=== PATIENT | male | born 1980 | race Caucasian/White ===

== ENCOUNTER 2019-09-12 16:45 | Outpatient (CLI) | payer OTHER ==
--- NOTE | 2019-09-13 09:23 | MRI Report ---
Reason: LOW BACK PAIN Procedure Date: 09/12/2019 Accession Number: [id number] / [id number] Procedure: MRI - Lumbar Spine W/O CPT Code: Final Report FULL RESULT: EXAM: MRI LUMBAR SPINE WITHOUT CONTRAST EXAM DATE: 09/12/2019 05:52 PM. CLINICAL HISTORY: LOW BACK PAIN. COMPARISON: None. TECHNIQUE: Multiplanar, multisequence T1-weighted and fluid-sensitive sequences of the lumbar spine from T12 to S1 without contrast. Other: None. FINDINGS: Lumbar alignment is anatomic. Vertebral body height is preserved. No fracture. Marrow signal is normal. The conus is normal in contour with the tip at the level of the L1 vertebra. Axial images demonstrate the following: L1-L2: Normal. L2-L3: Normal. L3-L4: Extremely minimal disk bulge/osteophyte eccentric to the right leads to minimal right foraminal stenosis. No central or left foraminal stenosis. L4-L5: Trace disk bulge/osteophyte leads to minimal right foraminal stenosis but no central or left foraminal stenosis. L5-S1: Small broad-based posterior midline disk protrusion with a small posterior midline annular fissure. No significant central or foraminal stenosis. IMPRESSION: 1. Very minimal lower lumbar degenerative disk disease leads to minimal right foraminal stenosis at L3-L4 and minimal right foraminal stenosis at L4-L5. No significant facet arthropathy anywhere in the lumbar spine. Comment: The following findings are so common in adults without low back pain that while we report their presence, they must be interpreted with caution and in the context of the clinical situation. (Reference Arlinevik et al, Spine 2001) Prevalence of findings in patients without low back pain: Disk degeneration (any evidence): 92% Disk desiccation/T2 signal loss: 83% Disk height loss: 56% Disk bulge: 64% Disk protrusion: 32% Annular tear/high intensity zone: 38% RADIA
== END 2019-09-12 16:46 | disposition home or self-care (01) ==
LOC: DI 16:45
PROVIDERS: ATTEND Registered Nurse Diabetes Educator
DX: M51.36 Other intervertebral disc degeneration, lumbar region (principal)
CPT/HCPCS: 72148